=== PATIENT | male | born 2000 | race African-American/Black ===

== ENCOUNTER 2021-09-04 08:37 | Emergency (ER) | payer SELFPAY ==
[~2021-09-04] VITALS: Ht 188 cm; Wt 117.9 kg
[2021-09-04 13:28] VITALS: BP 128/82
[2021-09-04] MEDS ORDERED: METR500T14 PO (13:42)
[2021-09-04] MEDS ORDERED: IBUP800T27 PO (13:42)
[2021-09-04] MEDS ORDERED: cefTRIAXone SOD 1,000 MG VL IM ONE (13:45)
[2021-09-04] MEDS ORDERED: IBUPROFEN 800 MG TAB PO ONE (13:45)
== END 2021-09-04 14:00 | disposition home or self-care (01) ==
LOC: ER 08:51
DX: L05.91 Pilonidal cyst without abscess (principal)
CPT/HCPCS: J0696